=== PATIENT | male | born 1960 | race Caucasian/White ===

== ENCOUNTER 2023-11-28 14:44 | Emergency (ER) | payer MEDICARE, BC, SELFPAY ==
--- NOTE | ~2023-11-28 | CT_ITS ---
Non-contrast Head CT History: Headache Technique: Axial non-contrast imaging of the brain was performed. Dose reduction technique was used on this scan by utilizing automated exposure control and iterative reconstruction technique. The dose -length product (DLP) was 605.33 mGy-cm. Findings: There is no evidence of intracranial hemorrhage, mass lesion, or acute infarct. Brain par enchyma appears normal. The ventricles and subarachnoid spaces are normal in size. The calvarium ap pears normal. The visualized paranasal sinuses and mastoid air cells are clear. Impression: No significant abnormality seen. Reviewed, dictated and finalized at location . Impression: No significant abnormality seen.
--- NOTE | ~2023-11-28 | XR_ITS ---
EXAMINATION: XR chest 2V DATE: 11/28/2023 18:01 INDICATION: Dizziness. TECHNIQUE: Frontal and lateral views of the chest were obtained. COMPARISON: Chest 2 views 05/24/2008 FINDINGS: There is no pneumonia, pleural effusion, or pneumothorax. The heart size is normal. IMPRESSION: 1. No acute cardiopulmonary disease. Reviewed, dictated and finalized at location A.
[2023-11-28 16:15] VITALS: BP 158/68; PULSE 98; RESP 15; TEMP 36.4; O2SAT 98
--- NOTE | 2023-11-28 16:16 | ECG_ITS ---
Test Date: 2023-11-28 16:22:13 Measurements Intervals [place] Rate: 94 P: 59 UT: 216 QRS: 57 QRSD: 104 T: 63 QT: 367 QTc: 461 Interpretive Statements SINUS RHYTHM WITH FIRST DEGREE AV BLOCK POSSIBLE LEFT VENTRICULAR HYPERTROPHY [VOLTAGE CRITERIA PLUS LAE OR QRS WIDENING] NONSPECIFIC T-WAVE ABNORMALITY No previous ECG available for comparison Electronically Signed On 11-29-2023 15:31:39 CDT by Radha Turpin M.D.
--- NOTE | 2023-11-28 16:18 | ED.DIZZY ---
HPI - Dizziness General Chief Complaint: Dizziness <Cora Caceres PA-C - Last Filed: 11/29/23 10:57> Stated Complaint: feels bad hasn't had monjaro shot in 2 weeks <Cora Caceres PA-C - Last Filed: 11/29/23 10:57> Time Seen by Provider: 11/28/23 16:18 <Cora Caceres PA-C - Last Filed: 11/29/23 10:57> Focused HPI: This is a 63 year old male that presents to the ER for dizziness. Reports generalized weakness. Reports he has been out of his Monjaro. He has not had it in about 3 weeks. Denies chest pain, shortness of breath, vomiting, numbness or or weakness. GENERAL: Well-appearing, well-nourished, and in no acute distress. HEAD: Normocephalic, atraumatic. CHEST: Clear to auscultation. ?No respiratory distress. HEART: Regular rate and rhythm.? NEURO: ?Alert and oriented x3. Patient screened in triage and initial orders placed.? ?Additional care and disposition to be based upon?diagnostic testing and treatment. <Cora Caceres PA-C - Last Filed: 11/29/23 10:57> History of Present Illness HPI Narrative: 63-year-old male with history of hypertension, DMT2 presents to the emergency department for dizziness, nausea and feeling off . Patient states he has been nauseous today and felt dizzy like the room is spinning. States he has also had a frontal headache with associated photophobia. He endorses a history of vertigo and states he has been out of his meclizine for several months. He denies chest pain or shortness of breath, lightheadedness, abdominal pain, vomiting or diarrhea. States he has not eaten today because he is waiting for his family member to come home, however his symptoms started upper air to him eating. He states he has been eating well up until today. He endorses a history of hyponatremia and is able to pull up his labs [facility] which show a sodium that ranges between 126-139. His most recent lab draw was in August with a sodium of 139, in July his sodium is 126 with a chloride of 86. Sodium was again low in and march around high 120s. He also states he has not taken his antihypertensives this evening which include labetalol 100 mg and hydralazine 10 mg. Denies cough or congestion , dysuria hematuria, fever. patient also states he has not had his mounjaro injection in 3 weeks because the order has been cancelled several times. <Renetta Garcia PA-C - Last Filed: 11/29/23 01:49> Related Data Allergies/Adverse Reactions: Allergies Allergy/AdvReac Type Severity Reaction Status Date / Time No Known Allergies Allergy Mild Verified 11/28/23 14:45 <Cora Caceres PA-C - Last Filed: 11/29/23 10:57> Review of Systems Review of Systems: All systems reviewed & are unremarkable except as noted in HPI and below <Renetta Garcia PA-C - Last Filed: 11/29/23 01:49> PMFSH Past Medical History Medical History: Medical History (Updated 11/29/23 @ 10:56 by Cora Caceres PA-C) History of diabetes mellitus History of hyperlipidemia History of hypertension <Cora Caceres PA-C - Last Filed: 11/29/23 10:57> Social History Social History: Social History (Updated 11/29/23 @ 10:56 by Cora Caceres PA-C) Substance use: never <Cora Caceres PA-C - Last Filed: 11/29/23 10:57> Exam Narrative: GENERAL: Well-appearing, well-nourished, and in no acute distress. HEAD: Normocephalic, atraumatic. EYES: PERRLA and EOMI. ENT: Nares clear, no rhinorrhea or epistaxis. Mucous membranes moist. Bilateral TMs are [place] nonbulging with normal canals, no effusions. NECK: Supple. CHEST: Clear to auscultation. No respiratory distress. HEART: Regular rate and rhythm. No murmur heard. Normal peripheral pulses. ABDOMEN: Soft, nontender, nondistended, normal active bowel sounds. EXTREMITIES: Normal range of motion. No edema. SKIN: Warm, dry, no rash. NEURO: No focal deficits. Alert and oriented x3 <Renetta Garcia PA-C - Last Filed: 11/29/23 01:49> C
[2023-11-28 16:25] LABS: Glucose Point of Care 154 mg/dl (65-105)
[2023-11-28 17:05] LABS: Basophils Percent Auto 0.4 % (0.2-1.2); Eosinophils Absolute Auto 0.1 K/mm3 (0-0.3); Eosinophils Percent Auto 0.5 % (0-4.4); Hemoglobin 13.5 g/dL (14.0-18.0); Immature Granulocyte Absolute 0.04 K/mm3 (0.00-0.031); Immature Granulocyte Percent A 0.4 % (0-0.5); Lymphocytes Absolute Auto 0.73 K/mm3 (0.9-3.2); Lymphocytes Percent Auto 7.4 % (18.3-44.2); Mean Corpuscular HGB Conc 34.6 g/dl (32-36); Mean Corpuscular Hemoglobin 30.9 pg (26-34); Mean Corpuscular Volume 89.2 fl (80-100); Mean Platelet Volume 8.8 fl (7.4-10.4); Monocytes Absolute Auto 0.3 K/mm3 (0.1-0.6); Monocytes Percent Auto 3.1 % (2.6-8.5); Neutrophils Absolute Auto 8.7 K/mm3 (1.3-6.7); Neutrophils Percent Auto 88.2 % (45.5-73.1); Platelet Count Result 327 k/mm3 (150-375); Red Blood Count 4.37 M/mm3 (4.6-6.20); Red Cell Distribution Width 12.1 % (11.5-14.5); White Blood Count 9.9 K/mm3 (4.5-10.0)
[2023-11-28 17:15] LABS: Alanine Aminotransferase 32 U/L (6-50); Albumin Level 4.9 g/dL (3.5-5.1); Alkaline Phosphatase 70 U/L (38-126); Anion Gap 15 mmol/L (4-12); Aspartate Amino Transferase 27 U/L (17-59); Bilirubin,Total 0.6 mg/dL (0.2-1.3); Blood Urea Nitrogen 10 mg/dL (9-20); Calcium 9.6 mg/dL (8.4-10.2); Carbon Dioxide 23 mmol/L (22-30); Chloride 89 mmol/L (98-107); Estimated CRCL calculation 89 ml/min; Estimated Glomerular Filt Rate > 60; Glucose 153 mg/dL (65-110); Lipase 58 U/L (23-300); Potassium 3.6 mmol/L (3.4-5.0); Sodium 127 mmol/L (137-145)
[2023-11-28 17:17] LABS: Magnesium 1.6 mg/dL (1.6-2.3); Phosphorus 2.4 mg/dL (2.5-4.5)
[2023-11-28 17:19] LABS: Beta-Hydroxybutyrate/Acetoacetate 0.16 mmol/L (0.02-0.27)
[2023-11-28] MEDS: SODIUM CHLORIDE 0.9% IV 1,000 ML 999 ML IV CONT (22:00)
[2023-11-28 22:35] VITALS: BP 197/88; PULSE 106; RESP 20; TEMP 36.7; O2SAT 100
[2023-11-28 23:01] LABS: Add Urine Microscopic? NO; Appearance Urine Clear (Clear); Bilirubin Urine Negative (Negative); Blood Urine Negative (Negative); Color Urine Yellow (Yellow); Glucose Urine UA Negative (Negative); Ketones Urine Negative (Negative); Leukocyte Esterase Ur Negative LEU/UL (Negative); Nitrate Urine Negative (Negative); Protein Urine Negative (Negative); Specific Grav Ur 1.003 (1.001-1.035); Urobilinogen Urine 0.2 mg/dL (<2.0); pH Urine 6.5 (5.0-9.0)
[2023-11-28 23:18] VITALS: PULSE 103
[2023-11-28] MEDS: ACETAMINOPHEN 500 MG TABLET 1000 MG PO (23:25)
[2023-11-28] MEDS: MECLIZINE HCL 25 MG TABLET PO (23:25)
[2023-11-28] MEDS: SODIUM CHLORIDE 0.9% IV 500 ML 999 ML IV CONT (23:26)
[2023-11-28] MEDS: ONDANSETRON INJ 4 MG/2 ML VIAL IV PUSH (23:26)
[2023-11-28] MEDS: PROCHLORPERAZINE EDISYLATE 10 MG/2 ML VIAL IV PUSH (23:26)
[2023-11-28 23:45] VITALS: PULSE 110
[2023-11-28] MEDS: hydrALAZINE 10 MG TABLET PO (23:45)
[2023-11-28] MEDS: LABETALOL HCL 100 MG TABLET PO (23:45)
[2023-11-29 00:23] LABS: Influenza A QL RT-PCR Negative (Negative); Influenza B QL RT-PCR Negative (Negative); RSV RNA, RT-PCR Negative (Negative); SARS-CoV-2 RNA PCR Positive (Negative)
[2023-11-29 00:56] VITALS: BP 168/79; PULSE 96; RESP 20; TEMP 36.4; O2SAT 95
== END 2023-11-29 01:55 | disposition home or self-care (01) ==
PROVIDERS: Physician Assistant; Emergency Provider Physician Assistant; PCP Physician Assistant
DX: U07.1 COVID-19 (principal); R42 Dizziness and giddiness; R11.0 Nausea; E87.1 Hypo-osmolality and hyponatremia; R51.9 Headache, unspecified; E11.9 Type 2 diabetes mellitus without complications; E78.5 Hyperlipidemia, unspecified; I10 Essential (primary) hypertension; Z91.148 Patient's other noncompliance with medication regimen for other reason
CPT/HCPCS: 36415; 70450; 71046; 80053; 81003; 82010; 82948; 83690; 83735; 84100; 85025; 87637; 93005; 96361; 96374; 96375; 99284; A9270; J0780; J2405; J7030; J7040